=== PATIENT | female | born 2000 | race Two or more races ===

== ENCOUNTER 2024-08-23 19:03 | Emergency (ER) | payer MEDICAID ==
[~2024-08-23] VITALS: Ht 157.5 cm; Wt 60.0 kg
[2024-08-23 21:06] LABS: Basophils # (auto) 0.1 10 ^3/uL (0-0.2); Basophils % (auto) 0.6 % (0.0-2.0); Eosinophils # (auto) 0.1 10 ^3/uL (0-0.8); Eosinophils % (auto) 1.5 % (0.0-7.0); Hemoglobin 15.5 g/dL (12.2-16.2); Lymphocytes # (auto) 1.9 10 ^3/uL (0.4-5.4); Mean Corpuscular Hgb Conc. 34.5 g/dL (32.0-36.0); Mean Corpuscular Volume 89.9 fL (80.0-100.0); Monocytes # (auto) 0.5 10 ^3/uL (0-1.3); Neutrophils # (auto) 6.8 10 ^3/uL (1.6-8.6); Neutrophils % (auto) 72.9 % (37.0-80.0); Platelet Count (auto) 285 10^3/uL (140-450); Red Cell Distribution Width 12.6 % (11.8-14.3); White Blood Cell 9.3 10^3/uL (4.4-10.8)
[2024-08-23 21:18] LABS: Urine Bacteria FEW /hpf (None Seen); Urine Blood Negative /uL (Negative); Urine Clarity Clear (Clear); Urine Color Light-Yellow (Yellow); Urine Protein, UAD Negative (Negative); Urine Urobilinogen Normal (Negative); Urine WBC 12 /hpf (0 - 5); Urine pH 6.5 (5.0-9.0)
[2024-08-23 21:23] LABS: Alanine Aminotransferase 11 U/L (7-40); Alkaline Phosphatase 86 U/L (46-116); Anion Gap 9 (5-15); BUN/Creatinine Ratio 8.7 (10.0-20.0); Calcium 10.2 mg/dL (8.7-10.4); Carbon Dioxide 24 mmol/L (20-31); Chloride 106 mmol/L (98-107); Glucose 85 mg/dL (74-106); Lipase 35 U/L (12-53); Potassium 3.9 mmol/L (3.5-5.1); Sodium 139 mmol/L (136-145)
[2024-08-23 21:24] LABS: Bilirubin, Total 0.8 mg/dL (0.2-1.0); Total Protein 7.5 g/dL (5.7-8.2)
[2024-08-23 21:26] LABS: Albumin 5.1 g/dL (3.2-4.8); Aspartate Aminotransferase 9 U/L (13-40); Blood Urea Nitrogen 6 mg/dL (9-23)
--- NOTE | 2024-08-23 21:43 | ED.PDOC ---
CORE FILER HPI Comments 24-year-old female who came to ER for pelvic pain. Patient is a , approximately 4-5 weeks by LMP. States for the past few hours she has been having lower abdominal cramping pain, back pains, pelvic pain. Denies any vaginal bleeding, vaginal discharge, or urinary symptoms. She reports positive home test. Patient went to urgent Care but was advised to go to the ER. Chief Complaint: Pelvic Pain Time Seen by MD: 21:43 Reviewed Notes: Nurses Notes Allergies: Coded Allergies: NO KNOWN ALLERGIES (Unverified , 08/23/24) Home Meds Active Scripts Cephalexin (KEFLEX CAPSULE) 250 Mg Cp, 1 CAP PO QID for 5 Days, #28 CAP Prov:MARISSA CAMPUZANO MD 08/23/24 Vit W/ Ferrous Fumara ( One Daily) Daily Tab, 1 TAB PO DAILY for 30 Days, #30 TAB 3 Refills Prov:MARISSA CAMPUZANO MD 08/23/24 Information Source: Patient Mode of Arrival: Ambulatory Timing: Hours Severity: Mild Vaginal Discharge: None Vaginal Mass: None Control: None History of: Current Associated Signs and Symptoms: Abdominal Pain Vital Signs Vital Signs Date Time Temp Pulse Resp B/P (MAP) Pulse Ox O2 Delivery O2 Flow Rate FiO2 08/23/24 23:10 98.2 86 17 122/78 (93) 96 98.2 08/23/24 23:05 Room Air* 0 21 Physical Exam General: Awake, alert and oriented. No acute distress. Skin: Skin in warm, dry and intact without rashes or lesions. HEENT: The head is normocephalic and atraumatic. Conjunctivae are clear without exudates or hemorrhage. Sclera is non-icteric. Neck: Normal range of motion. No JVD. Cardiac: Regular rate Respiratory: No signs of respiratory distress. No Stridor. Extremities: Upper and lower extremities are atraumatic in appearance without tenderness or deformity. Neurological: The patient is awake, alert and oriented to person, place, and time with normal speech. Speech is clear. There is no facial asymmetry. Psychiatric: Appropriate mood and affect. Good judgement and insight. No visual or auditory hallucinations. No suicidal or homicidal ideation. Review of Systems: REVIEW OF SYSTEMS: No fever, no chills, or fatigue HEENT: No sore throat, no earache, no congestion, no neck pain. Cardiac: No chest pain. No palpitations. Lungs: No shortness of breath, no cough. GI: No nausea, no vomiting, no diarrhea, no constipation, positive pelvic cramping : No dysuria, frequency, or urgency. No hematuria. Musculoskeletal: No joint pain , no joint swelling, no extremity edema. Skin: No rash, no itching. Neuro: No headache, no dizziness, no weakness Past Medical History PAST MEDICAL HISTORY: Denies Surgical History: Denies all surgeries TAX DIRECTOR History: Denies all TAX DIRECTOR Hx 1 Para 0 LMP July 17, 2024 Family History Family History: Reviewed,noncontributory to illness Social History Smoker: Non-Smoker Alcohol: Denies ETOH Use Drugs: Denies Drug Use Lives In: Home Was a procedure done? Was a procedure done?: No Differential Diagnosis (TAX DIRECTOR) Vaginal Bleeding: Ectopic , UTI, Other (PUL) Mass / Lesion: PID, Vaginitis - Bacterial Vaginal Discharge: , UTI X-Ray, Labs, Meds, VS Vital Signs Date Time Temp Pulse Resp B/P (MAP) Pulse Ox O2 Delivery O2 Flow Rate FiO2 08/23/24 23:10 98.2 86 17 122/78 (93) 96 98.2 08/23/24 23:05 86 17 96 Room Air* 0 21 08/23/24 19:37 98.2 77 18 124/82 (96) 99 Lab Test 08/23/24 20:49 08/23/24 20:41 08/23/24 19:40 Range/Units Lactic Acid Level 0.9 0.4-2.0 mmol/L White Blood Count 9.3 4.4-10.8 10^3/uL Red Blood Count 5.00 4.0-5.20 10^6/uL Hemoglobin 15.5 12.2-16.2 g/dL Hematocrit 45.0 36.0-46.0 % Mean Corpuscular Volume 89.9 80.0-100.0 fL Mean Corpuscular Hemoglobin 31.0 28.0-32.0 pg Mean Corpuscular Hemoglobin Concent 34.5 32.0-36.0 g/dL Red Cell Distribution Width 12.6 11.8-14.3 % Platelet Count 285 140-450 10^3/uL Mean Platelet Volume 8.6 6.9-10.8 fL Neutrophils (%) (Auto) 72.9 37.0-80.0 % Lymphocytes (%) (Auto) 20.0 10.0-50.0 % Monocytes (%) (Auto) 5.0 0.0-12.0 % Eosinophils (%) (Auto) 1.5 0.0-7.0 % Basophils (%) (Auto) 0.6 0.0-2.0 % Neutrophils # (Auto) 6.8 1.6-8.6 10 ^3/uL Lymphocytes # (Auto) 1.9 0.4-5.4 10 ^3/uL Monocytes # (Auto) 0.5 0-1.3 10 ^3/uL Eosinophils # (Auto) 0.1 0-0.8 10 ^3/uL Basophils # (Auto) 0.1 0-0.2 10 ^3/uL Nucleated Red Blood Cells 0.0 % Sodium Level 139 136-145 mmol/L Potassium Level 3.9 3.5-5.1 mmol/L Chloride Level 106 98-107 mmol/L Carbon Dioxide Level 24 20-31 mmol/L Anion Gap 9 5-15 Blood Urea Nitrogen 6 L 9-23 mg/dL Creatinine 0.69 0.550-1.02 mg/dL Glomerular Filtration Rate Calc 123 >90 mL/min BUN/Creatinine Ratio 8.7 L 10.0-20.0 Serum Glucose 85 74-106 mg/dL Calcium Level 10.2 8.7-10.4 mg/dL Total Bilirubin 0.8 0.2-1.0 mg/dL Aspartate Amino Transferase (AST) 9 L 13-40 U/L Alanine Aminotransferase (ALT) 11 7-40 U/L Alkaline Phosphatase 86 46-116 U/L Total Protein 7.5 5.7-8.2 g/dL Albumin 5.1 H 3.2-4.8 g/dL Lipase 35 12-53 U/L Beta HCG, Quantitative 7724.2 H 1.5-4.2 mIU/mL Urine Color Light-yellow Yellow Urine Clarity Clear Clear Urine pH 6.5 5.0-9.0 Urine Specific [place] 1.010 1.001-1.035 Urine Protein Negative Negative Urine Ketones Negative Negative Urine Blood Negative Negative /uL Urine Nitrite Negative Negative Urine Bilirubin Negative Negative Urine Urobilinogen Normal Negative mg/dL Urine Leukocyte Esterase 2+ Negative /uL Urine RBC 1 0 - 4 /hpf Urine WBC 12 0 - 5 /hpf Urine Squamous Epithelial Cells Few <5 /hpf Urine Bacteria Few H None Seen /hpf Urine Glucose Normal Normal mg/dL OBSTETRIC ULTRASOUND PRIOR TO 14 WEEKS FINDINGS: Uterus: 7.6 x 5.4 x 3.9 cm. There is a single intrauterine gestational sac is visualized measuring 0.78 cm. No yolk sac or pole is seen at this time Right adnexa: right ovary 2.9 x 2.1 x 1.9 cm. Normal arterial blood flow in the ovary. No right adnexal mass seen. Left adnexa: left ovary 2.6 x 2.9 x 2.2 cm. Normal arterial blood flow in the ovary. No left adnexal mass seen. Other: None IMPRESSION: Single intrauterine gestational sac. No yolk sac or embryo seen at this time. Findings are likely due to early gestation. Follow-up by trended beta hCGs and follow-up pelvic ultrasound in 7-14 days recommended Time of 1ST Reevaluation: 21:40 Reevaluation 1ST: Unchanged Patient Education/Counseling: Diagnosis, Treatment, Need For Follow Up Family Education/Counseling: Diagnosis, Treatment, Need For Follow Up Additional Information (Due to unavailability of open ER rooms/beds, the patient was seen and examined in the ER hallway in order to expedite care. The patient was offered the option to wait for a private ER room/bed to become available but opted to proceed with the hallway examination. ) Departure 1 Departure Time of Disposition: 22:33 Impression: Primary Impression: Pelvic cramping Additional Impressions: Early stage of UTI (urinary tract infection) during Disposition: 01 HOME / SELF CARE / HOMELESS Condition: Good Additional Instructions: ED DISCHARGE INSTRUCTIONS Instructions: Please read all instructions provided in this packet carefully. Your ultrasound shows early today. He is very important that you follow up for repeat ultrasound and level especially if he continued to have pelvic pain. You may take Tylenol for pain. Do not take ibuprofen or other NSAIDs. Take antibiotics as prescribed for urinary tract infection. Although you have been discharged from the Emergency Department, this does not mean that you have a "clean bill of health". []No definitive diagnosis for your symptoms has been made today. It is possible that you are in the process of developing a serious illness. This is why you must return to the ED without fail if any new or worsening symptoms (especially if your symptoms include chest pa in, trouble breathing, abdominal pain, fever, headache, confusion, trouble seeing, or trouble walking) It is also very important that you see a primary care doctor within the next 1-3 days to follow up. If you are unable to get an appointment, return to the ED for re-evaluation. Urinary Tract Infection in : Care Instructions Table of Contents Overview How can you care for yourself at home? When should you call for help? Credits Side view of uterus and urinary tract during , showing kidney, ureter, bladder, and urethra, with detail of bacteria entering urethra to bladder. Overview A urinary tract infection (UTI) is an infection caused by bacteria. It can happen anywhere in the urinary tract. A UTI can happen in the: Kidneys. Ureters, the tubes that connect the kidneys to the bladder. Bladder. Urethra, where the urine comes out. UTIs are common in . Most UTIs are infections in the bladder. They often cause pain or burning when you urinate. An untreated UTI could lead to more serious problems such as labor. Most UTIs can be cured with antibiotics. Your doctor will prescribe an antibiotic that is safe during . Be sure to finish your medicine so that the infection doesn't spread. Follow-up care is a john part of your treatment and safety. Be sure to make and go to all appointments, and call your doctor if you are having problems. It's also a good idea to know your test results and keep a list of the medicines you take. How can you care for yourself at home? Take your antibiotics as directed. Do not stop taking them just because you feel better. You need to take the full course of antibiotics. Drink extra water and other fluids for the next day or two. This will help wash out the bacteria causing the infection. If you have kidney, heart, or liver disease and have to limit fluids, talk with your doctor before you increase the amount of fluids you drink. Urinate often. Try to empty your bladder each time. Preventing UTIs Drink plenty of fluids. This helps you urinate often, which clears bacteria from your system. If you have kidney, heart, or liver disease and have to limit fluids, talk with your doctor before you increase the amount of fluids you drink. Urinate when you first have the urge. Urinate right after you have sex. When going to the bathroom, wipe from front to back to keep bacteria from entering the vagina or urethra. When should you call for help? Call your doctor now or seek immediate medical care if: You have new symptoms of a urinary tract infection or your symptoms get worse. These may include: Pain or burning when you urinate. A frequent need to urinate without being able to pass much urine. Pain in the flank, which is just below the rib cage and above the waist on either side of the back. Blood in your urine. A fever. Nausea and vomiting. Watch closely for changes in your health, and be sure to contact your doctor if: You do not get better as expected. Credits for Urinary Tract Infection in : Care Instructions Current as of: January 17, 2024 Author: Robbie [employer], [employer] Staff Clinical Review Board All [employer] education is reviewed by a team that includes physicians, nurses, advanced practitioners, registered dieticians, and other healthcare professionals. OBSTETRIC ULTRASOUND PRIOR TO 14 WEEKS CLINICAL INDICATION: Pelvic pain, positive status beta HCG 7724 TECHNIQUE: Multiple grayscale ultrasound images were obtained of the pelvis via transabdominal approach for obstetric evaluation. Limited color Doppler and spectral Doppler acquisitions were also obtained. COMPARISON: None FINDINGS: Uterus: 7.6 x 5.4 x 3.9 cm. There is a single intrauterine gestational sac is visualized measuring 0.78 cm. No yolk sac or pole is seen at this time Right adnexa: right ovary 2.9 x 2.1 x 1.9 cm. Normal arterial blood flow in the ovary. No right adnexal mass seen. Left adnexa: left ovary 2.6 x 2.9 x 2.2 cm. Normal arterial blood flow in the ovary. No left adnexal mass seen. Other: None IMPRESSION: Single intrauterine gestational sac. No yolk sac or embryo seen at this time. Findings are likely due to early gestation. Follow-up by trended beta hCGs and follow-up pelvic ultrasound in 7-14 days recommended e-Prescriptions Cephalexin (KEFLEX CAPSULE) 250 Mg Cp 1 CAP PO QID for 5 Days, #28 CAP Prov: MARISSA CAMPUZANO MD 08/23/24 Vit W/ Ferrous Fumara ( One Daily) Daily Tab 1 TAB PO DAILY for 30 Days, #30 TAB 3 Refills Prov: MARISSA CAMPUZANO MD 08/23/24 Comments 24-YEAR-OLD FEMALE WITH LOWER PELVIC CRAMPING. POSITIVE HCG WITH ULTRASOUND SHOWING ONLY GESTATIONAL SAC HERE IN THE EMERGENCY DEPARTMENT. NO VAGINAL BLEEDING. PATIENT'S PAIN WELL CONTROLLED, SHE IS ADVISED TO FOLLOW UP WITH CORE FILER OR PCP FOR RE-EVALUATION. ADVISED TO RETURN PRECAUTIONS. Extensive evaluation was performed IN ATTEMPT TO identify or rule out: (See differential diagnosis section) The following tests were ordered, and results were reviewed by me: (See diagnostic results section) The following test were independently interpreted by me: N/A I reviewed and agreed with the following test results read by other providers: N/A I reviewed the following notes from the pt's past medical encounters: (None available at this time) Additional information was gathered from interviewing the following independent historians: PATIENT'S SIGNIFICANT OTHER AT BEDSIDE Discussion of management or test interpretation with external physician/other qualified health health care marketing manager: N/A Addressed an acute or chronic illness that poses a threat to life or bodily function: PELVIC PAIN DURING Decision regarding hospitalization or escalation of hospital level of care: Risks and benefits of admission for further treatment of patient's condition was considered however due to patient's stable condition patient will be discharged to follow up closely or return to care for worsening of condition or inability to follow up. Critical Care Note Critical Care Time?: No Stability Stability form required: No Heart Score Heart Score: Heart Score Response (Comments) Value History N/A 0 EKG N/A 0 Age N/A 0 Risk Factors N/A 0 Troponin N/A 0 Total 0 I personally scribed for MARISSA CAMPUZANO MD ([email or web address]) on 08/23/24 at 21:43. Electronically submitted by Durga Belle ([employer]). I personally scribed for MARISSA CAMPUZANO MD ([email or web address]) on 08/23/24 at 22:14. Electronically submitted by Durga Belle ([email or web address]). MARISSA CAMPUZANO MD Aug 23, 2024 21:43
--- NOTE | 2024-08-23 22:06 | DVH ---
OBSTETRIC ULTRASOUND PRIOR TO 14 WEEKS CLINICAL INDICATION: Pelvic pain, positive status beta HCG 7724 TECHNIQUE: Multiple grayscale ultrasound images were obtained of the pelvis via transabdominal appro ach for obstetric evaluation. Limited color Doppler and spectral Doppler acquisitions were also obtai nery. COMPARISON: None FINDINGS: Uterus: 7.6 x 5.4 x 3.9 cm. There is a single intrauterine gestational sac is visualized measuring 0. 78 cm. No yolk sac or pole is seen at this time Right adnexa: right ovary 2.9 x 2.1 x 1.9 cm. Normal arterial blood flow in the ovary. No right adne xal mass seen. Left adnexa: left ovary 2.6 x 2.9 x 2.2 cm. Normal arterial blood flow in the ovary. No left adnexal mass seen. Other: None IMPRESSION: Single intrauterine gestational sac. No yolk sac or embryo seen at this time. Findings are likely du e to early gestation. Follow-up by trended beta hCGs and follow-up pelvic ultrasound in 7-14 days rec ommended
[2024-08-23] MEDS ORDERED: PREN-96 PO (22:35)
[2024-08-23] MEDS ORDERED: CEPH250C PO (22:36)
[2024-08-23 23:05] VITALS: PULSE 86; RESP 17; O2SAT 96
[2024-08-23 23:10] VITALS: BP 122/78; PULSE 86; RESP 17; TEMP 98.2; O2SAT 96
== END 2024-08-23 23:10 | disposition home or self-care (01) ==
LOC: ER 19:03
DX: O26.891 Other specified pregnancy related conditions, first trimester (principal); R10.2 Pelvic and perineal pain; O08.83 Urinary tract infection following an ectopic and molar pregnancy; N39.0 Urinary tract infection, site not specified; Z3A.01 Less than 8 weeks gestation of pregnancy; Z79.899 Other long term (current) drug therapy
CPT/HCPCS: 36415; 76801; 80053; 81001; 83605; 83690; 84702; 85025

== ENCOUNTER 2025-04-04 20:15 | Observation (INO) | payer BC ==
[~2025-04-04 20:15] MED LIST: CEPH250C PO; PREN-96 PO
--- NOTE | 2025-04-04 21:54 | DVH ---
ULTRASOUND BIOPHYSICAL PROFILE CLINICAL HISTORY: decreased FM COMPARISON: None TECHNIQUE: Real-time grayscale, color flow and M-mode imaging of the gravid uterus is performed. FINDINGS: Single living intrauterine gestation. Cephalic presentation. heart rate 145 beats per minute. Amniotic fluid index: 19.3 cm Biophysical profile: 8 out of 8. (2 breathing, 2 activity, 2 tone, 2 MARIEL) IMPRESSION: Biophysical profile score 8/8.
--- NOTE | 2025-04-04 22:14 | DVHDS2 ---
Physician Discharge Progress N Final Diagnosis: IUP at 37w2d presenting for decreased movement and tick bite Operations or Procedures: Operations or Procedures 24yo with EDC of 04/23/25, EGA 37w2d presents to the Place with report of occasional back pain and decreased movement Patient states she has been feeling pain since last night. The pain is off and on. Sometimes it feels like cramping and other times it feels like sciatica. She got bit by a tick today and is concerned that the tick bite is causing the sciatic pain and muscle soreness. She reports feeling like baby's movement is different than normal, no VB, leakage of fluids, [place], vision changes or epigastric pain. No urinary symptoms Has been in process of changing insurance so she has not been seen for a visit since 34w in and has nothing scheduled for the future. Patient has history of well-controlled asthma and no other medical hx. Reports no past surgery. She reports no toxic habit or IPV. ROS: Neurological: Unremarkable Respiratory: reports no respiratory symptom, no SOB Cardiovascular: no palpitation, chest pain or easy fatigue : No vaginal or urinary symptom O: PE: A&O x3, NAD, well groomed. pleasant. Appropriate and normal mood and affect, slightly anxious Afebrile, VSS Respiration: unlabored Heart and lungs sounds: normal Breasts: non-tender. no redness or swelling noted at site of tick bite Abdomen: Gravid, non-tender to palpation. Cephalic presentation Extremities: No edema VE: Deferred EFM: occasional contractions FHR baseline 140bpm with moderate variability and accelerations, no deceleration A: IUP at 37w2d Sciatic pain Category I FHR tracing Tick Bite GBS unknown P: -Discharge home -Educated on common discomforts of and relief measures for sciatic pain, good ergonomics, need for adequate hydration - advised to increased water intake. Discussed SI band or maternity belt to help support pelvis -Collected GBS swab to be sent to lab. Encouraged patient to make appointments if possible at 38 weeks, 39 weeks, and 40 weeks. Otherwise, st ressed the importance of presenting to L&D with any issues or on her due date for evaluation -Encouraged patient to continue to monitor site of tick bite for redness, swelling, or discharge. If issues arise, present to Urgent Care for followup -3rd trimester emergency S&S, FKC, labor & pre-eclampsia precautions reviewed with pt; advised to seek health care if any. Answered all patient questions and concerns. Patient verbalizes understanding with POC Other Interventions Other Interventions BPP RESULTS\\ Single living intrauterine gestation. Cephalic presentation. heart rate 145 beats per minute. Amniotic fluid index: 19.3 cm Biophysical profile: 8 out of 8. (2 breathing, 2 activity, 2 tone, 2 MARIEL) IMPRESSION: Biophysical profile score 8/8. Condition on Discharge: Good Disposition: Home Discharge Instructions: Diet: Regular Activity: No Restrictions, As Tolerated Medications: See med list. Unchanged Follow Up Care: Specialist: follow-up in 1 week for appointment Discharge Statement: "Patient was advised to return to the ER or call 911 if any headaches, dizziness, shortness of breath, chest pain, abdominal pain, bleeding, fevers, or worsening of medical condition. Patient was counseled about treatment plan, medications, possible side effects, patientverbalized understanding. All questions were answered to the best of my ability. This discharge took greater then 30 minutes in planning, reviewing documentation, counseling the patient, and discussing with other team members. Visit Coding OBGYN Date of Service: Apr 04, 2025 Billing Provider: MANINDER ARAYA CNM [facility] [employer]ER Common Visit Codes: 12009-YJCXYKW INP/OBS CARE (HIGH) [employer] [employer] Procedure Codes: 59912-84- NON-STRESS TEST MANINDER ARAYA CNM Apr 04, 2025 22:14
== END 2025-04-04 22:05 | disposition home or self-care (01) ==
LOC: LDRP 20:15
PROVIDERS: ADMIT Obstetrics & Gynecology; ATTEND Obstetrics & Gynecology
DX: O36.8130 Decreased fetal movements, third trimester, not applicable or unspecified (principal); O99.891 Other specified diseases and conditions complicating pregnancy; M54.30 Sciatica, unspecified side; O26.893 Other specified pregnancy related conditions, third trimester; R10.9 Unspecified abdominal pain; S30.860A Insect bite (nonvenomous) of lower back and pelvis, initial encounter; O99.513 Diseases of the respiratory system complicating pregnancy, third trimester; J45.909 Unspecified asthma, uncomplicated; Z3A.37 37 weeks gestation of pregnancy; W57.XXXA Bitten or stung by nonvenomous insect and other nonvenomous arthropods, initial encounter; Y93.89 Activity, other specified; Y92.89 Other specified places as the place of occurrence of the external cause; Y99.8 Other external cause status
CPT/HCPCS: 76818; 81002; 87081; G0378; 59025; 76819

== ENCOUNTER 2025-04-10 03:11 | Inpatient (IN) | payer BC ==
[2025-04-10] VITALS (7 sets, daily range): BP systolic 111–131; BP diastolic 57–75; PULSE 68–108; RESP 14–18; TEMP 98.2–99; O2SAT 96–99
[~2025-04-10] VITALS: Ht 157.5 cm; Wt 63.5 kg
[2025-04-10] MEDS ORDERED: LIDOCAINE 2%HCL (LOCAL ANESTH.) INJ 20ML MDV IJ PRN (03:30)
[2025-04-10] MEDS ORDERED: NALBUPHINE HCL 10 MG/1ml INJECTION IV PRN (03:30)
[2025-04-10] MEDS ORDERED: LACT. RINGERS/OXYTOCIN 20UNITS 500 ML IV ONE ×2 (03:45→04:15)
[2025-04-10 04:07] LABS: Hematocrit 34.1 % (36.0-46.0); Hemoglobin 12.4 g/dL (12.2-16.2); Mean Corpuscular Hemoglobin 31.8 pg (28.0-32.0); Mean Corpuscular Volume 87.6 fL (80.0-100.0); Nucleated Red Blood Cells % 0.1 %
[2025-04-10] MEDS: PENICILLIN G POT 5MIL/D5 50ML 50 ML IV ONE (04:12)
[2025-04-10] MEDS: LACTATED RINGER'S 1,000 ML IV SCH (04:13)
[2025-04-10] MEDS: DERMOPLAST 60ML BOTTLE TOP PRN (04:18)
[2025-04-10] MEDS: WITCH HAZEL-GLYCERIN PAD TOP PRN (04:19)
[2025-04-10] MEDS: PHISODERM TOP SOLN 240ML BTL TOP PRN (04:19)
[2025-04-10 04:20] LABS: Alanine Aminotransferase 10 U/L (7-40); Alkaline Phosphatase 114 U/L (46-116); Anion Gap 10 (5-15); BUN/Creatinine Ratio 8.2 (10.0-20.0); Calcium 10.4 mg/dL (8.7-10.4); Carbon Dioxide 22 mmol/L (20-31); Chloride 107 mmol/L (98-107); Glucose 85 mg/dL (74-106); Sodium 139 mmol/L (136-145)
[2025-04-10 04:21] LABS: Albumin 3.6 g/dL (3.2-4.8); Bilirubin, Total 0.5 mg/dL (0.2-1.0)
[2025-04-10 04:22] LABS: Blood Urea Nitrogen 5 mg/dL (9-23); Potassium 3.5 mmol/L (3.5-5.1); Total Protein 5.7 g/dL (5.7-8.2)
[2025-04-10 04:23] LABS: INR 0.93 (0.9-1.15); Partial Thromboplastin Time 23.9 SEC (24.5-34.5); Prothrombin Time 9.9 sec (9.3-11.8)
--- NOTE | 2025-04-10 04:46 | DVHHP2 ---
OB CC & HPI Date Date of Admission: Apr 10, 2025 Patient Identification: : 1 Para: 0 EDC: Apr 28, 2025 EGA: 38.1wks Chief Complaints: Reason for admission: rupture of membranes History of Present Complaints 24yo IUP@38.1wks presents to OB triage with c/o SROM at 0200, large amount of clear fluid noted. Having some contractions. Denies VB/PARKINSON/vision changes/RUQ pain. Endorses +FM. PNC: Routine PNC at [facility] OB, adequate visits, PNC uncomplicated. GTT wnl, dating based on LMP c/w 10wk sono, GBS positive. Past Medical History Cardiac: No pertinent Hx Pulmonary: Asthma Central Nervous System: No pertinent Hx GI: No pertinent Hx Hemotology/Oncology: No pertinent Hx Hepatobiliary: No pertinent Hx Psychiatric: Depression Musculoskeletal: No pertinent Hx Rheumotologic: No pertinent Hx Infectious Disease: No peritnent Hx ENT: No pertinent Hx Renal/: No pertinent Hx Endocrine: No pertinent Hx Dermatology: No pertinent Hx Past Surgical History: No pertinent Hx OB History OB History Care: Good Care Ultrasounds: Normal mid trimester US Obstetrical Complications: None Medical Complications: None Allergies: Coded Allergies: NO KNOWN ALLERGIES (Unverified , 08/23/24) Home Meds Active Scripts Ibuprofen (Ibuprofen) 800 Mg Tab, 800 MG PO TID PRN for 5 Days, #20 TAB Prov:SEUN PRIETO DO 04/10/25 Hydrocodone-Acetaminophen (Hydrocodone/Acetaminophen 10-325 mg) 1 Tab Tab, 1 TAB PO Q6HPRN PRN for 7 Days, #28 TAB Prov:SEUN PRIETO 04/10/25 Docusate Sodium (Colace) 100 Mg Cap, 1 CAP PO BID, #60 CAP 2 Refills Prov:SEUN PRIETO DO 04/10/25 Cephalexin Monohydrate (Cephalexin) 500 Mg Cap, 500 MG PO QID for 7 Days, CAP Prov:SEUN PRIETO 04/10/25 Cephalexin (KEFLEX CAPSULE) 250 Mg Cp, 1 CAP PO QID for 5 Days, #28 CAP Prov:MARISSA CAMPUZANO MD 08/23/24 Vit W/ Ferrous Fumara ( One Daily) Daily Tab, 1 TAB PO DAILY for 30 Days, #30 TAB 3 Refills Prov:MARISSA CAMPUZANO MD 08/23/24 Home Meds PNV Current Medications Current Medications Medications (Trade) Dose Ordered Sig/Ana Luisa Route PRN Reason Start Time Stop Time Status Last Admin Lactated Ringer's 1,000 ml @ 125 mls/hr Q8H IV 04/10/25 03:30 04/10/25 04:13 Nalbuphine HCl (Nubain) 10 mg Q4HP PRN IV MODERATE PAIN (4-6 PAIN SCALE) 04/10/25 03:30 Penicillin G Potassium [id number] units/Dextrose 50 ml @ 100 mls/hr Q4H IV 04/10/25 07:30 Witch Valarie (Tucks) 1 pad PRN PRN TOP PERINEAL AREA DISCOMFORT 04/10/25 03:30 04/10/25 04:19 Sodium Lauryl Sulfate (Phisoderm) 240 ml PRN PRN TOP PERINEAL AREA DISCOMFORT 04/10/25 03:30 04/10/25 04:19 Benzocaine (Dermoplast) 1 applic PRN PRN TOP PERINEAL AREA DISCOMFORT 04/10/25 03:30 04/10/25 04:18 Lidocaine HCl (Xylocaine) 40 ml ONCE PRN IJ PERINEAL AREA DISCOMFORT 04/10/25 03:30 Family & Social History Family/Social History Past Family/Social History: denies Blood Type: O+ Rubella: immune RPR/VDRL: Negative GBS Status: Positive HBsAG: Negative Review of Systems Constitutional: No symptom reported Ears, Nose, & Throat: No symptom reported Eyes: No symptom reported Pulmonary/Respiratory: No symptom reported Cardiovascular: No symptom reported Gastrointestinal: No symptom reported Genitourinary: No symptom reported Musculoskeletal: No symptom reported Skin: No symptom reported Psychiatric: No symptom reported Endocrine: No symptom reported Hemotologic/Lymphatic: No symptom reported OB Admission Exam Physical Exam Vitals: VSS, see CPN HEENT: TMs Normal, Fontanelles Normal, Nasal Mucosa Normal, Eyes non-injected, Oropharynx Normal, PERRLA, Moist Membranes, EOMI Heart: Rhythm Normal Lungs: Clear Abdomen: Gravid Extremities: Normal Reflexes: Normal Pelvic Exam: SVE by RN: /60/-2, vertex Membranes: Ruptured Amniotic Fluid: Clear Heart Rate: 120's Accelerations: Accelerations Present Decelerations: No Decelerations Microphone Operator Variability: Average (6-25) Contractions on Admission: < 5 Minutes Apart Intensity: Moderate OB Plan Plan Admitting Diagnosis: SROM Plan: Induction Induction Methd: Misoprostol protocol Other Plan: A: 24yo IUP@38.1wks Induction of Labor SROM, clear fluid Category I EFM GBS positive P: Admit to L&D Informed consent obtained Expectant management for now due to frequent UCs Discussed starting IOL with cytotec PO when UCs space out with pt. Pt agrees with POC. monitoring per order Routine labs ordered Pain mgmt PRN Frequent position changes in and out of bed encouraged Limit SVE unless necessary Intrauterine resuscitation PRN Anticipate CNM will consult with Dr. Prieto PRN Visit Coding OBGYN Date of Service: Apr 10, 2025 Billing Provider: CARLOS GAGNON CNM CORPORATE AUDITOR Common Visit Codes: [id number] INP/OBS CARE (MOD) CORPORATE AUDITOR Procedure Codes: 96235-46- NON-STRESS TEST CARLOS GAGNON CNM Apr 10, 2025 04:46
[2025-04-10] MEDS ORDERED: ONDANSETRON HCL 4 MG/2 ML VIAL IV PRN ×2 (05:15→14:15)
[2025-04-10 05:45] LABS: Urine Protein, UAD Negative (Negative)
[2025-04-10 05:59] LABS: Amphetamine Screen, Urine Neg (NEGATIVE); Barbiturate Scree,Urine Neg (NEGATIVE); Benzodiazephine Screen, Urine Neg (NEGATIVE); Cannabinoid Screen, Urine Neg (NEGATIVE); Cocaine Screen, Urine Neg (NEGATIVE); Opiate Scree,Urine Neg (NEGATIVE); Phencyclidine Screen, Urine Neg (NEGATIVE)
--- NOTE | 2025-04-10 07:18 | DVHPN2 ---
Chief Complaints Patient reports: No new complaints Nursing reports: No new complaints Objective Medications Current Medications Medications (Trade) Dose Ordered Sig/Ana Luisa Route PRN Reason Start Time Stop Time Status Last Admin Benzocaine (Dermoplast) 1 applic PRN PRN TOP PERINEAL AREA DISCOMFORT 04/10/25 03:30 04/10/25 04:18 Lactated Ringer's 1,000 ml @ 125 mls/hr Q8H IV 04/10/25 03:30 04/10/25 04:13 Lidocaine HCl (Xylocaine) 40 ml ONCE PRN IJ PERINEAL AREA DISCOMFORT 04/10/25 03:30 Misoprostol (Cytotec) 50 mcg Q4HPRN PRN PO CERVICAL RIPENING 04/10/25 05:15 04/10/25 05:32 Nalbuphine HCl (Nubain) 10 mg Q4HP PRN IV MODERATE PAIN (4-6 PAIN SCALE) 04/10/25 03:30 Ondansetron HCl (Zofran) 4 mg Q6HPRN PRN IV NAUSEA / VOMITING 04/10/25 05:15 Penicillin G Potassium [id number] units/Dextrose 50 ml @ 100 mls/hr Q4H IV 04/10/25 07:30 Sodium Lauryl Sulfate (Phisoderm) 240 ml PRN PRN TOP PERINEAL AREA DISCOMFORT 04/10/25 03:30 04/10/25 04:19 Witch Valarie (Tucks) 1 pad PRN PRN TOP PERINEAL AREA DISCOMFORT 04/10/25 03:30 04/10/25 04:19 Others ve-1cm/60/-2 Studies Laboratory Tests 04/10/25 03:49 Test 04/10/25 03:49 Range/Units Serum Glucose 85 74-106 mg/dL Ass/Plan Assessment sron Plan recv one cytotec rec epidural Visit Coding OBGYN Date of Service: Apr 10, 2025 Billing Provider: SEUN TOMPKINS DO MOTION PICTURE OPERATOR Common Visit Codes: [id number] INP/OBS CARE (HIGH) MOTION PICTURE OPERATOR Procedure Codes: 69708-70- NON-STRESS TEST SEUN TOMPKINS DO Apr 10, 2025 07:18
[2025-04-10] MEDS: PENICILLIN G POTASSIUM 2,500,000 UNITS in D5W 5% 50 ML IV SCH (08:19)
[2025-04-10] MEDS: LACTATED RINGER'S 1,000 ML IV ONE (10:10)
[2025-04-10] MEDS: ROPIVACAINE HCL 100 ML ONE (10:14)
[2025-04-10] MEDS ORDERED: TERBUTALINE SULFATE 1 MG/ML 1ML VIAL SC PRN (10:45)
[2025-04-10] MEDS: LACT. RINGERS/OXYTOCIN 20UNITS 1,000 ML IV SCH (11:33)
[2025-04-10] MEDS ORDERED: ceFAZolin 2 GM/D5W50ml 50 ML IV ONE (12:45)
[2025-04-10] MEDS: LIDOCAINE HCL 2 %PF INJ 10ML AMP IJ ONE (12:54)
[2025-04-10] MEDS ORDERED: LIDOCAINE 2% (LOCAL ANESTH.) PF 5ml SDV ONE ×2 (12:55→12:59)
[2025-04-10] MEDS ORDERED: MORPHINE SULF PF 5 MG/10 ML VIAL ONE (13:00)
--- NOTE | 2025-04-10 13:13 | DVHHP ---
ADMIT DATE: 04/10/2025 CHIEF COMPLAINT: Nonreassuring heart tracing, fetus at risk. HISTORY OF PRESENT ILLNESS: The patient is a 24-year-old 1 para 0 with EDC 04/28 and an estimated gestational age of 38 weeks admitted for spontaneous rupture of membranes. The patient progressed to 3 cm after Cytotec. She was started on Pitocin. She was then 5 cm. However, kept having bradycardia. Pitocin had to be turned off. Recurrent bradycardia kept happening. Subsequently, the patient is being taken for primary . This stress was without even any Pitocin augmentation but continued with deceleration and bradycardia. Subsequently, the patient is taken for primary low transverse section. PAST MEDICAL HISTORY: None. PAST SURGICAL HISTORY: None. SOCIAL HISTORY: None. FAMILY HISTORY: None. OBSTETRIC/GYNECOLOGIC HISTORY: Primigravida. REVIEW OF SYSTEMS: Consistent with HPI. PHYSICAL EXAMINATION: VITAL SIGNS: Stable, afebrile. HEENT: Within normal limits. CARDIOVASCULAR: Regular rate and rhythm. LUNGS: Clear to auscultation. BREASTS: Symmetrical. No masses. ABDOMEN: Gravid. Positive heart. PELVIC: 5 cm, 90%, -1. EXTREMITIES: No clubbing, cyanosis, or edema. IMPRESSION: * Intrauterine at 38 weeks with nonreassuring heart tracing, fetus at risk. * Intolerance to Pitocin augmentation. PLAN: Primary low transverse section. Informed consent obtained. Risks and complications of surgery including infection, bleeding, hematoma formation, injury to bowel, bladder, surrounding organs, possibility of DVT, pulmonary embolism, risk of anesthesia discussed with the patient. Options reviewed. All questions answered. The patient fully understands. She wishes to proceed with planned procedure. DO PALAK Long TID: [id number] RECEIPT: [id number]
[2025-04-10] MEDS ORDERED: SODIUM CHLORIDE LOCK 10 ML ONE (13:14)
[2025-04-10] MEDS ORDERED: ceFAZolin 1GM VL ONE (13:14)
[2025-04-10] MEDS: TRANEXAMIC ACID 20 ML ONE (13:20)
[2025-04-10] MEDS: METHYLERGONOVINE MALEATE 0.2 MG/ML AMP IM ONE (13:21)
[2025-04-10] MEDS ORDERED: ONDANSETRON HCL 4 MG/2 ML VIAL ONE (13:32)
[2025-04-10] MEDS: ONDANSETRON HCL 4 MG/2 ML VIAL IV ONE (14:08)
[2025-04-10] MEDS ORDERED: HYDROmorphone HCL 2 MG/ML VL/or syr IV PRN ×2 (14:15)
[2025-04-10] MEDS: NALBUPHINE HCL 10 MG/1ml INJECTION SUBCUT ONE (14:15)
[2025-04-10] MEDS ORDERED: KETOROLAC TROMETH 30 MG/ML 1ML VIAL IV PRN (14:15)
[2025-04-10] MEDS ORDERED: diphenhdrAMINE HCL 50 MG/1 ML VL IV PRN (14:15)
[2025-04-10] MEDS ORDERED: MEPERIDINE HCL (25 MG/ML) 1ML VIAL IV PRN (14:15)
[2025-04-10] MEDS ORDERED: NALOXONE HCL 0.4 MG/ML VIAL IV PRN (14:15)
[2025-04-10] MEDS: ACETAMINOPHEN IV 1000 MG/100ML (10MG/ML) IV PRN (14:17)
[2025-04-10] MEDS: METOCLOPRAMIDE HCL 5MG/ml INJ 2ml VIAL IV ONE (14:18)
[2025-04-10] MEDS: METOCLOPRAMIDE HCL 5MG/ml INJ 2ml VIAL ONE (14:21)
[2025-04-10] MEDS: ONDANSETRON HCL 4 MG/2 ML VIAL ONE (14:21)
--- NOTE | 2025-04-10 14:56 | DVHOP2 ---
Operative Report DATE OF OPERATION: 04/10/25 PREOPERATIVE DIAGNOSES:iup at 38wks with ftp,op POSTOPERATIVE DIAGNOSES: same,nuchal cord,op SURGEON: Kenia Prieto D.O./lara ANESTHESIOLOGIST: lloyd TYPE OF ANESTHESIA : CONSENT: The patient was informed of the risks and benefits of the procedure. The patient was informed of the risks and benefits of the procedure. These include but are not limited to , complications of anesthesia, postoperative infection, incomplete relief of symptoms, recurrence of symptoms, damage to blood vessels, nerves and tendons, deep venous thrombosis, pulmonary embolism and possible need for repeat surgery in the future. FINDINGS: Baby [f] with Apgars of [8] and [9]. Grossly normal appearing tubes and ovaries.nuchal cordx1,op PROCEDURES: Primary low transverse section. PROCEDURE IN DETAIL: The patient was taken to the operating room. She already had an epidural in place. She was then placed in supine position with a leftward tilt. A Pfannenstiel skin incision was made 2 cm above the symphysis pubis. This incision was carried to the underlying layer of fascia. The fascia was nicked in the midline. The incision was extended laterally. The superior aspect of the fascial incision was grasped and elevated. The same procedure was done to the inferior aspect of the fascial incision. The rectus muscles were then in the midline. Peritoneum was identified and entered. Peritoneal incision was extended superiorly and i nferiorly with good visualization of the bladder. Bladder blade was inserted. Vesicouterine peritoneum was identified and entered. Lower uterine segment was incised in a transverse fashion. The was delivered from vertex op with nuchal [id number]. was baby [f] with Apgars [8] and [9]. Placenta was then removed manually. Uterus was exteriorized and cleared of all clots and debris. The incision was repaired using 0 Vicryl in a double-layered fashion. No bleeding was noted. Uterus was then returned to the abdomen. The gutters were cleared off all clots and debris. Peritoneum was closed using 0 Vicryl, fascia was closed using 0 Maxon, and skin was closed using musa. The patient tolerated the procedure well. She was taken to the recovery room in stable condition. ESTIMATED BLOOD LOSS: Estimated blood loss was noted to be 800 mL. Visit Coding OBGYN Date of Service: Apr 10, 2025 Billing Provider: KENIA PRIETO DO TECHNICAL OPERATIONS SPECIALIST Common Visit Codes: [id number] OBS CARE (HIGH) TECHNICAL OPERATIONS SPECIALIST Procedure Codes: [id number] DELIVERY ONLY KENIA PRIETO DO Apr 10, 2025 14:56
--- NOTE | 2025-04-10 14:58 | POSTOP ---
Post-Operative Note Post-Operative Note Preop Diagnosis iup at 38wks ftp,arrest of descend,op Postop Diagnosis: same,nuchal cord and op Operation performed pltcs Specimen baby f ,apgars 8-9,op,nuchal cord Anesthesia: Regional Anesthesiologist: nuygen Blood Loss(fluid mgmt) 800ml Surgeon Seun Prieto Log Data Technician lara Implant na Complications & Mgmt none Date 04/10/25 Time 14:56 Visit Coding OBGYN Date of Service: Apr 10, 2025 Billing Provider: SEUN PRIETO DO YARD PERSON Common Visit Codes: [id number] OBS CARE (HIGH) YARD PERSON Procedure Codes: 24396-EXQ DELIVERY ONLY, 17815-N-RALEXCE DELIVERY ONLY SEUN PRIETO DO Apr 10, 2025 14:58
[2025-04-10] MEDS ORDERED: HYDR-4072 PO (15:09)
[2025-04-10] MEDS ORDERED: IBUP-1456 PO ×2 (15:09→21:38)
[2025-04-10] MEDS ORDERED: DOCU-94 PO (15:09)
[2025-04-10] MEDS ORDERED: CEPH500C PO (15:09)
[2025-04-10] MEDS ORDERED: LACTATED RINGER'S 1,000 ML IV SCH (15:30)
[2025-04-10] MEDS: LACT. RINGERS/OXYTOCIN 20UNITS 1,000 ML IV ONE (15:30)
[2025-04-10] MEDS: GUM (CHEWING) 1 GUM CHEW CHEW ONE (15:30)
[2025-04-10] MEDS: ceFAZolin 1GM/50ML 50 ML IV SCH (21:09)
[2025-04-10] MEDS ORDERED: PREN-96 PO (21:38)
[2025-04-10 22:33] LABS: Hematocrit 32.0 % (36.0-46.0); Hemoglobin 11.4 g/dL (12.2-16.2); Mean Corpuscular Hemoglobin 31.8 pg (28.0-32.0); Mean Corpuscular Volume 89.4 fL (80.0-100.0); Nucleated Red Blood Cells % 0.1 %
[2025-04-11] VITALS (15 sets, daily range): BP systolic 101–129; BP diastolic 61–85; PULSE 64–78; RESP 15–18; TEMP 97.7–98.7; O2SAT 95–97
[2025-04-11] MEDS: ACETAMINOPHEN IV 1000 MG/100ML (10MG/ML) IV PRN (00:25)
--- NOTE | 2025-04-11 01:09 | DVHPN2 ---
Progress Note Date Seen: Apr 11, 2025 Subjective S: bleeding is less, eating food without issues, denies lightheaded/dizziness, pain well controlled with oral medications, no concerns with urinating, passing flatus, no BM yet, ambulating well, and formula vital signs Vital Sign Date Time Temp Pulse Resp B/P (MAP) Pulse Ox O2 Delivery O2 Flow Rate FiO2 04/10/25 23:00 99.0 74 16 131/69 (89) 98 99.0 04/10/25 19:00 Room Air 04/10/25 13:56 0 99 Total Intake and Output 04/10/25 04/10/25 04/11/25 15:00 23:00 07:00 Output Total 100 ml 350 ml Balance -100 ml -350 ml medications Current Medications Medications Dose Ordered Sig/Ana Luisa Route Start Time Stop Time Status Last Admin Dose Admin Lactated Ringer's 1,000 ml @ 125 mls/hr Q8H IV 04/10/25 03:30 04/10/25 21:09 125 MLS/HR Jeaneth Sheppard 1 pad PRN PRN TOP 04/10/25 03:30 04/10/25 04:19 1 PAD Sodium Lauryl Sulfate 240 ml PRN PRN TOP 04/10/25 03:30 04/10/25 04:19 240 ML Benzocaine 1 applic PRN PRN TOP 04/10/25 03:30 04/10/25 04:18 1 APPLIC Diphenhydramine HCl 25 mg Q4HP PRN IV 04/10/25 14:15 Ondansetron HCl 4 mg Q4HP PRN IV 04/10/25 14:15 Ketorolac Tromethamine 30 mg Q6HP PRN IV 04/10/25 14:15 04/15/25 14:14 Cefazolin Sodium 50 ml @ 100 mls/hr Q8H IV 04/10/25 21:00 04/11/25 13:29 04/10/25 21:09 100 MLS/HR Acetaminophen 1,000 mg Q8HPRN PRN IV 04/10/25 22:15 04/11/25 22:14 04/11/25 00:25 1,000 MG laboratory and microbiology Laboratory Tests 04/10/25 22:01 04/10/25 03:49 Test 04/10/25 03:49 Range/Units Serum Glucose 85 74-106 mg/dL Objective O: VSS Chest: heart sounds normal and lung sounds clear bilaterally Abd: soft, non-tender, fundus at U/firm/midline, active bowel sounds, no rebound or guarding Incision: steri-strips open to air, clean/dry/intact, edges well approximated Ext: Non-tender, No edema, 2+ BLE DTRs Lochia: minimal See lab results Problems(with codes): (1) Precipitous drop in hematocrit (2) S/P primary low transverse Assessment/Plan A/P: 24yo now PPD#1 s/p primary -Continue with routine PP care Plan discussed with: Patient, Spouse Visit Coding OBGYN Date of Service: Apr 11, 2025 Billing Provider: CARLOS GAGNON CNM ORCHARD SPRAYER Common Visit Codes: [id number] INP/OBS CARE(HIGH) CARLOS GAGNON CNM Apr 11, 2025 01:09
[2025-04-11] MEDS: SIMETHICONE 80 MG CHEWABLE TABLET PO SCH (05:06)
[2025-04-11] MEDS ORDERED: HYDROcodone-ACET 5/325MG TAB PO PRN ×2 (05:45→15:45)
[2025-04-11] MEDS: IBUPROFEN 800 MG TAB PO PRN (05:58)
[2025-04-11 06:52] LABS: Hematocrit 31.5 % (36.0-46.0); Hemoglobin 11.3 g/dL (12.2-16.2); Mean Corpuscular Hemoglobin 31.7 pg (28.0-32.0); Mean Corpuscular Volume 88.7 fL (80.0-100.0); Nucleated Red Blood Cells % 0.0 %
[2025-04-11] MEDS: DOCUSATE SOD 100 MG CAP PO SCH (10:28)
[2025-04-11 16:07] LABS: Chlamydia Trachomatis, NAA Negative (Negative); Neisseria gonorrhoeae, NAA Negative (Negative)
[2025-04-11] MEDS: ACETAMINOPHEN 325 MG TAB PO PRN (20:29)
--- NOTE | 2025-04-12 01:20 | DVHPN2 ---
Progress Note Date Seen: Apr 12, 2025 Subjective -Lochia minimal -Regular diet well tolerated. -Ambulating and voiding well w/o feeling dizzy or lightheaded -Pain relieved with oral medication PRN -Passing flatus but no BM yet. - and bottle feeding. Is having difficulty burping the baby - Contraceptive plan: Uncertain -Desires and requests to be discharged home today (04/12) vital signs Vital Sign Date Time Temp Pulse Resp B/P (MAP) Pulse Ox O2 Delivery O2 Flow Rate FiO2 04/11/25 22:30 97.9 74 18 119/73 (88) 96 97.9 04/11/25 19:00 Room Air 04/10/25 13:56 0 99 Total Intake and Output 04/11/25 04/11/25 04/12/25 15:00 23:00 07:00 Output Total 400 ml Balance -400 ml medications Current Medications Medications Dose Ordered Sig/Ana Luisa Route Start Time Stop Time Status Last Admin Dose Admin Jeaneth Sheppard 1 pad PRN PRN TOP 04/10/25 03:30 04/10/25 04:19 1 PAD Sodium Lauryl Sulfate 240 ml PRN PRN TOP 04/10/25 03:30 04/10/25 04:19 240 ML Benzocaine 1 applic PRN PRN TOP 04/10/25 03:30 04/10/25 04:18 1 APPLIC Diphenhydramine HCl 25 mg Q4HP PRN IV 04/10/25 14:15 Ondansetron HCl 4 mg Q4HP PRN IV 04/10/25 14:15 Dimethicone 80 mg QID PO 04/11/25 05:30 04/11/25 22:11 80 MG Docusate Sodium 100 mg Q12HR PO 04/11/25 10:00 04/11/25 22:11 100 MG Ibuprofen 800 mg Q8HP PRN PO 04/11/25 05:45 04/11/25 22:11 800 MG Acetaminophen/ Hydrocodone Bitart 2 tab Q4HPRN PRN PO 04/11/25 05:45 Acetaminophen/ Hydrocodone Bitart 1 tab Q4HPRN PRN PO 04/11/25 15:45 Hold Acetaminophen 650 mg Q4HP PRN PO 04/11/25 19:45 04/11/25 20:29 650 MG laboratory and microbiology Laboratory Tests 04/11/25 06:03 04/10/25 03:49 Test 04/10/25 03:49 Range/Units Serum Glucose 85 74-106 mg/dL Objective -A&O x4. No apparent distress. Affect appropriate -Afebrile, VSS -Chest: heart and lung sounds normal. -Breasts: Nipples intact w/o cracks or soreness -Abdomen: normal BS, soft, non-tender, no rebound or guarding, fundus firm @ U- 1, -Lower abdominal incision site with dressing dry and intact. No edema, erythema or induration -Extremities: no edema or tenderness Problems(with codes): (1) S/P primary low transverse (2) Precipitous drop in hematocrit Assessment/Plan ASSESSMENT 24 yo now Post operative & ppd # 2 s/p Primary Section for intolerance to labor, doing well. Blood Type: O+ Combo feeding Rubella Immune PLAN -Continue pain management with oral medications as previously ordered -Increase fluid intake and fiber in diet to promote regular bowel movements, Laxative PRN -Discussed caring for a normal and their eating behavior -Educated patient on self-care and warning signs to watch for, including PPH, PPD, and pre-eclampsia -Continue routine care. Anticipate discharge today Plan discussed with: Patient, Spouse Visit Coding OBGYN Date of Service: Apr 12, 2025 Billing Provider: MANINDER ARAYA CNM CELLULOSE INSULATION HELPER Common Visit Codes: [id number]/OBS SAME DATE (HIGH) MANINDER ARAYA CNM Apr 12, 2025 01:20
--- NOTE | 2025-04-12 01:23 | DVHDS2 ---
Obstetrics Discharge Summary Obstetrics Discharge Summary Date of Admission: Apr 10, 2025 Date of Discharge: Apr 12, 2025 Reason For Admission: Onset of Labor Intrapartum Procedures: (Low Cervical Transverse) Procedures: Hct/date: (31.5), Hgb/date: (11.3) Discharge Diagnosis: Term -Delivered Discharge Information: Activity (Unrestricted. Advance as tolerated. Balance activities with rest periods. No heavy lifting, pushing or straining. Pelvic rest x 6 weeks), Diet (Routine regular diet rich in fiber, protein, iron and vitamin C with adequate fluid intake.), Medications (See Medication List), Discharge to (Home), Discarge date (04/12/25) Discharge Care Plan Instructions - self care instructions given - emergency signs and symptoms including but not limited to pre-eclampsia precautions and signs of infection, PPH & of PPD reviewed with patient. -Follow up with OB Provider in 1 week. Subsequent appointments will be scheduled at that time Visit Coding OBGYN Date of Service: Apr 12, 2025 Billing Provider: MANINDER ARAYA CNM VIROLOGY TEACHER Common Visit Codes: 04059-SDA/OBS DISCH DAY >30MIN MANINDER ARAYA CNM Apr 12, 2025 01:23
[2025-04-12 07:00] VITALS: BP 119/61; PULSE 68; RESP 16; TEMP 98.1; O2SAT 96
[2025-04-12 10:53] VITALS: BP 136/79; PULSE 73; RESP 16; TEMP 98.6; O2SAT 99
== END 2025-04-12 11:30 | disposition home or self-care (01) | DRG 788 ==
LOC: LDRP 03:11 → OBSVTOIN 03:25 → LDRP 04:50
PROVIDERS: ADMIT Nurse Practitioner Women's Health; ATTEND Obstetrics & Gynecology
PROC: 10D00Z1 Extraction of Products of Conception, Low, Open Approach (ICD-10-PCS; principal; 2025-04-10 13:07)
DX: O77.9 Labor and delivery complicated by fetal stress, unspecified (principal); J45.909 Unspecified asthma, uncomplicated; O69.81X0 Labor and delivery complicated by cord around neck, without compression, not applicable or unspecified; Z37.0 Single live birth; Z3A.38 38 weeks gestation of pregnancy; O99.824 Streptococcus B carrier state complicating childbirth
CPT/HCPCS: 36415; 59025; 62282; 80053; 80307; 81001; 85025; 85610; 85730; 86780; 86803; 86850; 86900; 86901; 94760; 94762; 96360; 96361; 96366; G0378; J0131; J0690; J2003; J2405; J2540; J2590; J7060